=== PATIENT | male | born 1965 | race Caucasian/White ===

== ENCOUNTER → 2022-01-23 | Outpatient (CLI) | payer SELFPAY, OTHER ==
--- NOTE | 2022-01-23 08:12 | CT_ITS ---
STUDY: CT ABDOMEN AND PELVIS WITH CONTRAST REASON FOR EXAM: Male, 56 years old. 5 month history of left-sided groin pain. RADIATION DOSAGE (If Supplied By Facility): CTDIvol = ( 91.25 ) mGy, DLP = ( 444.42 ) mGycm TECHNIQUE: Transaxial images were obtained from the dome of the diaphragm to the symphysis pubis with oral contrast. Oral and amp; IV Readi-CAT and amp; 100mL Isovue-370 was administered. Sagittal and coronal images were reconstructed. Individualized dose optimization techniques were used for this CT. COMPARISON: None. FINDINGS: The visualized lung bases are unremarkable. The visualized portions of the heart are within normal limits. Normal liver. Normal gallbladder and extrahepatic biliary system. Normal spleen. Normal pancreas. Normal bilateral adrenal glands. Normal right kidney. There is a 4 cm x 3 cm cyst in the posterior medial upper pole of the left kidney. There is a small hiatal hernia. Normal small intestine. There are multiple colonic diverticula consistent with diverticulosis. The appendix is visualized and appears normal. Normal abdominal aorta. Normal inferior vena cava. Normal retroperitoneum. Normal urinary bladder. There is a small umbilical hernia containing fat. Small left inguinal hernia containing nondilated small bowel. Small right hernia containing fat. Small lymph nodes are seen in both groins. Normal osseous structures. CT/Abdomen/Pelvis WITH Contrast IMPRESSION: Bilateral inguinal hernias left greater than right. The left inguinal hernia contains nondilated small bowel. Electronically Signed: Marcus Bustos MD at 14:29 EDT ,
== END | disposition home or self-care (01) ==
LOC: CT 08:11
PROVIDERS: PCP Nurse Practitioner Family; Referring Provider Surgery; Visit Provider Surgery
DX: R10.9 Unspecified abdominal pain (principal); R10.30 Lower abdominal pain, unspecified
CPT/HCPCS: 74177; Q9967

== ENCOUNTER 2022-07-07 09:35 | Day surgery (SDC) | payer SELFPAY, OTHER ==
--- NOTE | 2022-06-27 14:38 | EKG12_ITS ---
Test Reason : PRE-OP Blood Pressure : / mmHG Vent. Rate : 082 BPM Atrial Rate : 082 BPM P-R Int : 146 ms QRS Dur : 088 ms QT Int : 362 ms P-R-T Axes : 043 015 062 degrees QTc Int : 422 ms Normal sinus rhythm Normal ECG Confirmed by KARYN JOHNSON, ZURI ([id number]), map editor BELGICA CARRERA ([id number]) on 06/28/2022 8:05:43 AM Referred By: Stuart Mcnulty Confirmed By:ZURI BOSS MD
[2022-06-27 16:14] LABS: Thyroid Stim Hormone (TSH) < 0.01 uIU/mL (0.358-3.74)
[2022-07-07] VITALS (8 sets, daily range): BP systolic 112–152; BP diastolic 68–79; PULSE 78–99; RESP 16–18; TEMP 36.6–37.4; O2SAT 95–100; BMI 22.9
--- NOTE | 2022-07-07 | LIP_PTH ---
PATIENT: DAMARIS [place] [facility] [id number] AGE/SX: 56/M ROOM: RE07/07/[address]: Dr. Stuart Mcnulty MD : 1965 BED: DIS: 07/07/2022 SPEC #: [id number] RECD: 07/07/22 15:50 STATUS: KEVIN EVAN #: [id number] CAT: 07/07/22 00:[address]: Stuart Mcnulty DEPT: SURGICAL PATHOLOGY RECD BY: Suhas Barnes ENTERED: 07/10/22 10:26 SP TYPE: LIPOMA OTHR DR: Abby Abbott, DONKEY DOCTOR-C Tissues: Soft tissues, NOS Procedures: Surgery Specimen Level III HEADER OPERATION: Laparoscopic robotic inguinal hernia repair with mesh PRE-OP DIAGNOSIS: Hernia, groin pain TISSUE SUBMITTED: Left cord lipoma MICROSCOPIC DIAGNOSIS Left cord lipoma, excision: Mature adipose tissue consistent with cord lipoma. AM:marzena 07/11/2022 MICROSCOPIC DESCRIPTION Slides are reviewed. GROSS DESCRIPTION Received in fixative is one container labeled with the patient name and designated left cord lipoma. The specimen consists of an irregular piece of yellow adipose tissue measuring 6 x 2.5 x 1 cm. No mass lesion is identified. Sections reveal yellow adipose cut surfaces without areas of hemorrhage, necrosis or cystic degeneration. Global Marketing Specialist sections are submitted in one cassette. / SJ:marzena 07/10/2022 TC:1 CPT: 44429
--- NOTE | 2022-07-07 10:05 | EKG12_ITS ---
Test Reason : PREOP Blood Pressure : / mmHG Vent. Rate : 059 BPM Atrial Rate : 059 BPM P-R Int : 150 ms QRS Dur : 082 ms QT Int : 406 ms P-R-T Axes : 075 -08 080 degrees QTc Int : 401 ms Sinus bradycardia Otherwise normal ECG Confirmed by KARYN JOHNSON, ZURI ([id number]), editor farm journal BELGICA CARRERA ([id number]) on 07/12/2022 9:05:15 AM Referred By: Stuart Mcnulty Confirmed By:ZURI BOSS MD
[2022-07-07] MEDS: Lactated Ringers 1,000 ML 15 ML IV ×2 (10:21→14:15)
--- NOTE | 2022-07-07 10:37 | PCM.HP.BLA ---
History and Physical Date of Admission: 07/07/22 Date of Service:? 01/12/22 MR#: [id number] Acct: [id number] Name:DAMARIS MURDOCK Rep #: [id number] : 1965 ? ? Provider: Dr. Stuart Mcnulty MD Age/Sex:? 56/M ? ? Location: [facility] Status: Signed Intake Vital Signs ? 01/13/2208:36 Height 5 ft 6 in Weight: 147 lb 8 oz BMI 23.8 BP 123/76 H Blood Pressure Location Rt brachial Position Sitting Respiration 17 Pulse 81 Pulse Source Monitor Temp 97.8 F Temp Source Temporal Pulse Oximetry (%) 98 Oxygen Delivery Method room air Intake Visit Reasons:?Hernia Chief Complaint: Left inguinal hernia [employer] Former Required: No Is patient in pain?: No Allergies No Known Allergies Allergy (Verified 01/12/22 08:40) Medications NK? 01/12/22 [History Confirmed 01/12/22] PFSH Medical History?(Updated 01/12/22 @ 16:[address] Stuart Mcnulty MD) Aftercare following finger joint replacement surgery Surgical History? History of left knee replacement Family History?(Updated 01/12/22 @ 08:36 by Whitley Sunday) Grandmother DiabetesFather Heart disease Social History?(Updated 01/12/22 @ 08:36 by Whitley Sunday) Smoking Status:? Never smoker alcohol intake:? never substance use type:? does not use HPI HPI HPI: DAMARIS CLARK, is a 56 M who presents to the office today for complaint of new left groin pain and an associated bulge.? This finding was first noticed by patient earlier this year, but patient is not able to recall how this occurred.? 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 He has tried to remain on the prescribed lifting restrictions, but states he did lift something heavy yesterday and this bothered his left groin.? Other symptoms include: Some mild constipation which is described as a need to push harder than usual, but stools are still characterized as soft and formed.? Patient has had no prior colonoscopy. Patient has no personal history of smoking.? Has no personal history of recurrent cutaneous infections including staph.? Pertinent surgical history includes: Negative for any abdominal surgeries. Patient reports normal history, and was born at term as a twin. ROS General General: Yes weight change; No appetite, fatigue, colon cancer, breast cancer or weakness HEENT HEENT: No difficulty swallowing, eye injury, eye surgery, swollen glands or hoarseness Endo Endocrine: No thyroid disease, diabetes mellitus, thyroid cancer, Hair loss, heat intolerance or cold intolerance Skin Skin: No rash or changing moles Musc Musculoskeletal: No back problems, arthritis, rheumatoid arthritis, gout or joint pain Cardio Cardiovascular: No murmur, pacemaker, heart disease, atrial fibrillation, high blood pressure, heart attack, heart stent, palpitations, shortness of breat with exertion or chest pain Psych Psychiatric: No depression, anxiety or hearing voices Resp Respiratory: No shortness of breath, No sleep apnea, No cough, No COPD, No asthma, No emphysema and No wheezing Gastro Gastrointestinal: Yes abdominal pain, No nausea or vomiting, No diarrhea, No constipation, No blood in stool, No acid reflux, No hemorrhoids, No ulcers, No gallbladder problem and No black,tarry stools Brett Hematologic: No blood thinners, No blood disorders, No bleeding, No anemia and No blood clots Neuro Neurologic: No system reviewed and no additional complaints, except as documented, No as per HPI, No abnormal gait, No abnormal hearing, No abnormal movements, No abnormal speech, No behavioral changes, No burning sensations, No confusion, No convulsions, No disequilibrium, No dizziness, No localized weakness, No frequent falls, No headache(s), No lack of coordination, No loss of vision, No memory loss, No numbness, No other visual disturbances, No radicular pain, No restless legs, No sensory deficit, No syncope, No tingling, No tremor(s), No weakness and No other Exam Const General: cooperative, healthy appearing, comfortable and no acute distress Resp Effort & Inspection: normal respiratory effort Cardio Rate: regular rate Rhythm: regular rhythm Heart Sounds: S1 normal and S2 normal GI Inspection: normal to inspection, non-distended and no scars Palpation: soft and nontender Testes: normal Other: The bilateral inguinal canals are palpated and I am not able to detect a defect in either the floor or laterally to represent an indirect hernia even with patient coughing or doing other provocative maneuvers. Assessment and Plan Assessment and Plan (1) Hernia: (2) Groin pain: ?Status:?Acute ?Comment: This is a 56-year-old male, otherwise healthy, who presents with new left groin pain.? While his description is consistent with a inguinal hernia, I am unable to feel a inguinal canal defect with exam.? This certainly could represent a small defect that is undetectable by exam, but differential would also include a sports hernia or other strain.? To further investigate the possibility of a small defect, I have requested a follow-up CT of the abdomen and pelvis.? We will plan to follow-up with patient on these results once they are known. ?Plan: ? Follow-up CT of the abdomen and pelvis and will discuss results with patient (3) Constipation: ?Status:?Acute ?Comment: Is a 56-year-old male with possible left inguinal hernia presents with constipation.? He denies any episodes of obstipation.? He has not undergone screening colonoscopy.? I have recommended a colonoscopy once we are able to complete work-up for his inguinal issue.? He expresses understanding of this recommendation and and interested in proceeding as described at the appropriate time. ?Plan: Defer screening colonoscopy until patient's inguinal complaint better characterized I have examined the patient the following changes are noted: Patient reports that following our initial consultation visit in December 2021 he experienced significant weight loss and was ultimately found to have significant hyperthyroidism. He was seen by endocrinology and placed on methimazole. He reports a significant improvement in his overall wellbeing following the initiation of this medication. He denies any further interval changes. We reviewed the expectations for the procedure as well as post procedure restrictions. Neither he nor his offered any further questions. Therefore we will proceed with robot-assisted inguinal hernia repair?likely bilateral based on CT results?with mesh placement.
[2022-07-07] MEDS: Cefazolin 2 GM in 0.9% Normal Saline 100 ML IV (11:07)
[2022-07-07] MEDS: Bupivacaine 0.25%-Epi/Pf 1:200,000 10 ML (12:00)
--- NOTE | 2022-07-07 14:36 | OP.PCM_ITS ---
Report of Operation Date of Procedure: 07/07/22 Pre-Operative Diagnosis: Left possible right inguinal hernia Post-Operative Diagnosis: Left indirect inguinal hernia Surgery/Procedure Performed:: Robot-assisted repair of left inguinal hernia with mesh Description of Surgical Findings:: ? Clear evidence of left indirect inguinal hernia intraperitoneally. No evidence of right inguinal hernia. ? Surgeon: Stuart Mcnulty assistant professor of english: Flora Akins assistant professor of english: Ric Lundberg Type of Anesthesia: General/Supplemental Anesthesiologist: Alexander Sears Estimated Blood Loss (mL): 10 Description of Procedure: After appropriate identification the preoperative holding area the patient was brought to the operating room where the was positioned supine on the operating table. Preoperative antibiotics were completed and the patient was administered a general anesthetic. Patient's abdomen was then prepped and draped in usual sterile fashion. Formal timeout followed to confirm patient and procedure. Procedure was begun with an optical entry facilitated by Veress insufflation at a left paramedian entry point approximately 25 cm cephalad to the target anatomy. A 8 mm robotic trocar was placed with a careful Optiview technique. Follow-up laparoscopic investigation revealed no inadvertent injury to the viscera below. A second port was placed a hand's breath right of this index port under laparoscopic visualization. Then a third and final robotic port was placed a handsbreadth to the left of the index port placement. Patient was positioned in slight Trendelenburg and I performed a local block of the ilioinguinal nerve using local anesthetic under laparoscopic visualization. As I examined the bilateral inguinal spaces it was clearly evident patient has left indirect inguinal defect, but there was no evidence of a defect on the right. The robot was docked in standard fashion and a camera was targeted to the left groin. Robotically a peritoneal flap was created on the left and was bluntly dissected to expose the medial parietal compartment and lateral visceral compartments. Medially I could visualize the pubic tubercle and space of Retzius while laterally I extended the dissection down below the level of the ASIS onto the iliopsoas complex posteriorly. The hernia sac was identified and from the cord structures deeply with selective use of monopolar energy. A large cord lipoma was identified and removed with monopolar energy. Carefully the hernia sac was grasped and the adherent soft tissues were swept away taking care to protect the cord structures and vas deferens inferiorly. The peritoneal flap was inspected to ensure that there was no pulling of the cord structures or the viscera deeply over the psoas using the pull test. Once satisfied, a Bard 3D max, size large, regular weight mesh was placed into the abdomen along with suture. It was positioned within the preperitoneal pocket so that there was good medial and inferior overlap. It was then tacked to the abdominal wall at the adminiculum medially and at the border with the muscle laterally using 3-0 Vicryl. I then closed the peritoneal flap in a running fashion with 3 oh V-Loc suture. I hung the hernia sac vertically in front of an inadvertent peritoneal rents using Vicryl suture in a [id number] fashion. I repeatedly checked for flat lie of the mesh and found this to be intact. With the peritoneal pockets closed, sutures were systematically removed from the peritoneum, the cord lipoma was placed in an Endo Catch bag and delivered from the peritoneum, and the pneumoperitoneum was evacuated before undocking the r obot and removing the trocars. The port sites were closed at the skin with running 4-0 Monocryl in a subcuticular fashion. Steri-Strips and OpSite's were used as dressings. Patient's testicles were confirmed within the scrotum. Patient was then awoken from anesthetic and transferred to PACU for ongoing recovery. Grafts/Implants Used: Bard 3D max large reg wt mesh lot number [id number] Complications None Admit VTE Documentation VTE Present on Admission: No VTE Mechan Device Prophylaxis: SCD's Procedures Digestive 40xxx-49xxx: 36262 Lap ing hernia repair init
--- NOTE | 2022-07-07 14:50 | DCINST_ITS ---
Discharge Instructions Diet Discharge Diet: No restrictions Activity Discharge Activity: May Not Drive (No driving while using narcotic pain medication) and May Shower May shower in (days): 1 Ice area for (Minutes): 20 Lifting Restrictions: No lifting greater than 10 pounds for the next 6 weeks after surgery Dressing / Incision Call your doctor if your incision/area has: Continuous Slow Oozing, Sudden Increased Bleeding, Increased Pain/ Swelling, Increased Redness, Foul Smelling Discharge and Swelling at the incision site Call your doctor if you observe: Fever of 101 or Higher and Inability to urinate Remove Dressing in: 2 days Cleanse incision/area with: Soap & Water Follow Up Care Please Follow Up With: Stuart Mcnulty MD When: 7 to 10 days postop Test Results: Test results from this visit will be discussed in further detail at your follow- up appointment, if applicable. Discharge Plan Admission Primary Reason for Your Visit: Left inguinal hernia repair Attending Provider: Stuart Mcnulty Primary Care Provider: Abby Abbott Instructions Patient Instructions: Laparoscopic Hernia Repair Discharge Orders/Prescriptions Prescriptions: New oxycodone 5 mg tablet 5 mg PO Q6H PRN (Reason: pain) 5 Days Qty: 20 0RF Continued methimazole 10 mg tablet 20 mg PO DAILY Qty: 60 3RF Other Ambulatory Orders: 12 Lead EKG (Routine) Timeframe: [id number] Location: None Selected Ordered By: Dr. Aleksey Galvan Referrals / Follow Up: Abby Abbott, COFFEE MACHINE TECHNICIAN-C [Primary Care Provider] - Disposition Disposition (needs filled in before D/C Order can be placed): Home, Self Care
[2022-07-07] MEDS: oxyCODONE 5 MG Tablet PO (16:24)
== END 2022-07-07 17:40 | disposition home or self-care (01) ==
LOC: SDC 09:38 → AC 09:38
PROVIDERS: Anesthesiology; PCP Nurse Practitioner Family; Referring Provider Surgery; Visit Provider Surgery
PROC: 0YQ64ZZ Repair Left Inguinal Region, Percutaneous Endoscopic Approach (ICD-10-PCS; CPT 49650; principal; 2022-07-07 10:40)
DX: K40.90 Unilateral inguinal hernia, without obstruction or gangrene, not specified as recurrent (principal); K59.00 Constipation, unspecified; E05.90 Thyrotoxicosis, unspecified without thyrotoxic crisis or storm; D17.6 Benign lipomatous neoplasm of spermatic cord
CPT/HCPCS: 49650; 00840; 55520; 36415; 84443; 87081; 88304; 93005; J7120; C1781; J2405

== ENCOUNTER → 2022-07-13 | Outpatient (CLI) | payer OTHER, SELFPAY ==
[2022-07-13 12:22] LABS: Free T3 3.9 pg/mL (2.18-3.98); T4 Free Direct 1.24 ng/dL (0.76-1.46); Thyroid Stim Hormone (TSH) < 0.01 uIU/mL (0.358-3.74)
[2022-07-16 15:36] LABS: Thyroid Peroxidase AB 162 IU/mL (0-34)
== END | disposition home or self-care (01) ==
LOC: LAB 10:34
PROVIDERS: PCP Nurse Practitioner Family; Referring Provider Internal Medicine Endocrinology, Diabetes & Metabolism; Visit Provider Internal Medicine Endocrinology, Diabetes & Metabolism
DX: E05.90 Thyrotoxicosis, unspecified without thyrotoxic crisis or storm (principal)
CPT/HCPCS: 36415; 84439; 84443; 84481; 86376